=== PATIENT | female | born 1960 | race Caucasian/White ===

== ENCOUNTER 2018-06-07 17:22 | Emergency (ER) | payer OTHER, MEDICAID ==
[~2018-06-07] VITALS: Ht 162.6 cm; Wt 94.3 kg
[2018-06-07] MEDS ORDERED: LORATIDINE 10 M10 M1 PO (18:00)
[2018-06-07] MEDS ORDERED: NEURONTIN 300300 M1 PO (18:00)
[2018-06-07] MEDS ORDERED: LISINOPRIL20 MG PO (18:01)
[2018-06-07] MEDS ORDERED: SYNTHROID125 MC1 PO (18:01)
[2018-06-07] MEDS ORDERED: ZANAFLEX4 MG PO (18:01)
[2018-06-07] MEDS ORDERED: ULTRAM 50MG TAB50 MG PO (18:02)
[2018-06-07] MEDS ORDERED: NORCO 5-325 TA1 EACH PO (18:14)
[2018-06-07 18:22] VITALS: BP 149/88
== END 2018-06-07 18:23 | disposition home or self-care (01) ==
LOC: M.ERS 17:22
DX: M54.9 Dorsalgia, unspecified (principal); M79.641 Pain in right hand; M79.642 Pain in left hand; I10 Essential (primary) hypertension; K21.9 Gastro-esophageal reflux disease without esophagitis; F31.9 Bipolar disorder, unspecified; K31.84 Gastroparesis; F42.9 Obsessive-compulsive disorder, unspecified; Z88.8 Allergy status to other drugs, medicaments and biological substances; Z88.0 Allergy status to penicillin; Z98.890 Other specified postprocedural states; Z90.89 Acquired absence of other organs

== ENCOUNTER 2021-05-14 14:37 | Emergency (ER) | payer MEDICAID ==
[~2021-05-14] VITALS: Ht 162.6 cm; Wt 77.1 kg
--- NOTE | ~2021-05-14 | EMS ---
[address] [address] EMS Patient Care Report Name: DARLING GA Room: [facility]#: [id number] Admission: Attend Phys: Discharge: Date of : 58 Report #: [id number] THIS REPORT FOR: //name// Report Transmitted: 05/14/2021 14:32 EMS Care Summary [facility] Incident [phone] @ 05/14/2021 13:59 Incident Location [address] [place] [address] Patient DARLING GA Female, 61 Years 1960 Patient Address [address] [place] [address] Patient History Bipolar II Disorder,Schizophrenia,Neuropathy, Patient Allergies Penicillin allergy, Patient Medications Flexeril, Vitamin B12, Levothyroxine, Meclizine, Chief Complaint Hot/Cold interchanging temperatures Disposition Transported No Lights/[place] Dispatch Reason Sick Person Transported To [facility] Narrative S51 dispatched on a sick at a local residence. On EMS arrival, the pt was ambulating towards the ambulance from her residence. Pt stated that she wanted [address] [address] EMS Patient Care Report Name: DARLING GA Room: [facility]#: [id number] Admission: Attend Phys: Discharge: Date of : 58 Report #: [id number] to be "treated right" at a hospital and wanted her stool samples to "be tested". Pt stated that she was also "having thyroid issues", where she would get "hot" and "start sweating" then "get really cold". Pt stated that believed her building had a "fruit fly infestation" and that it was effecting her "insides". Pt stated that she had anxiety and was worried about her living situation and that people told her she was "paranoid". Pt stated that she wanted to transport to a local ED for further evaluation. Pt was able to ambulate into ambulance and was placed on cot in position of comfort. Pt was secured to cot using straps provided and in the ambulance. Vitals and assessments obtained. Pt was continually reassessed during transport. At receiving facility, pt care was transferred to nursing staff with verbal report given. RTS Glenroy Wyman, NRP Initial Vitals @14:13P: 85,R: 18,BP: 156/76,Pain: 0/10,GCS: 15,SpO2: 97,Revised Trauma: 12, @14:24P: 80,R: 18,BP: 158/92,GCS: 15,SpO2: 97,Revised Trauma: 12, Impression Behavioral/psychiatric episode Procedures @14:07 ALS Assessment Response: UnchangedSucceeded Timeline 13:58,Call Received 13:58,Psap Call 13:59,Dispatched 14:00,En Route 14:06,Initial Responder On Scene 14:06,On Scene 14:07,At Patient 14:07,ALS Assessment,Response: UnchangedSucceeded, 14:12,Depart Scene 14:13,BP: 156/76 M,PULSE: 85,RR: 18 R,SPO2: 97 Ox,ETCO2: ,BG: ,PAIN: 0,GCS: 15, 14:24,BP: 158/92 M,PULSE: 80,RR: 18 R,SPO2: 97 Ox,ETCO2: ,BG: ,PAIN: ,GCS: 15, 14:35,At Destination 14:51,Call Closed Disclaimer v1.1 Copyright 2021 [employer] This EMS Care Summary contains data elements from the applicable legal record (which may be displayed differently). It [place] [address] EMS Patient Care Report Name: DARLING GA Room: [facility]#: [id number] Admission: Attend Phys: Discharge: Date of : 58 Report #: [id number] information for the following purposes: continuity of care, clinical quality, and state data reporting. The complete legal record is available to ED staff and administrators of the receiving hospital in [employer] [address] Patient Tracker. All data is provided "as is."
[~2021-05-14 14:37] MED LIST: LISINOPRIL20 MG PO; LORATIDINE 10 M10 M1 PO; NEURONTIN 300300 M1 PO; NORCO 5-325 TA1 EACH PO; SYNTHROID125 MC1 PO; ULTRAM 50MG TAB50 MG PO; ZANAFLEX4 MG PO
[2021-05-14] MEDS ORDERED: MECLIZINE HCL12.5 MG PO (14:59)
[2021-05-14] MEDS ORDERED: ZYPREXA2.5 MG PO (14:59)
[2021-05-14] MEDS ORDERED: BACLOFEN5 MG PO (14:59)
[2021-05-14] MEDS ORDERED: LEVO-T25 MCG PO (14:59)
[2021-05-14] MEDS ORDERED: DEPAKOTE250 MG PO (15:00)
[2021-05-14 15:25] LABS: ABSOLUTE BASOPHILS 0.1 thou/uL (0.0-0.2); ABSOLUTE EOSINOPHILS 0.5 thou/uL (0.0-0.7); ABSOLUTE LYMPHOCYTES 2.1 thou/uL (0.8-5.3); ABSOLUTE MONOCYTES 0.9 thou/uL (0.0-1.2); BASOPHILS 0.8 %; EOSINOPHILS 5.5 %; HEMATOCRIT 42.5 % (37.0-47.0); MCH 29.4 pg (26.0-34.0); MCHC 32.8 g/dL (28.0-37.0); MCV 89.4 fL (80.0-100.0); MPV 8.2 fl. (7.2-11.1); NUCLEATED RBCS 0 /100WBC; PLATELET COUNT* 301 thou/uL (150-400); POLYS 58.7 %; RBC 4.76 mil/uL (4.20-5.00); RDW-CV 13.5 % (10.5-14.5); WBC 8.6 thou/uL (4.0-11.0)
[2021-05-14 15:26] LABS: URINE BILIRUBIN NEGATIVE (Negative); URINE BLOOD TRACE (Negative); URINE CLARITY CLEAR; URINE COLOR YELLOW; URINE GLUCOSE-RANDOM NEGATIVE (Negative); URINE KETONES NEGATIVE (Negative); URINE LEUKOCYTES-REFLEX TRACE (Negative); URINE NITRITE-REFLEX NEGATIVE (Negative); URINE PROTEIN NEGATIVE (Negative); URINE UROBILINOGEN 0.2 E.U./dl (0.2-1.0)
[2021-05-14 15:31] LABS: BACTERIA-REFLEX None Seen /HPF (None Seen); CASTS None Seen /LPF (None Seen); CRYSTALS None Seen /LPF (None Seen); SQUAMOUS 0-3 Few /LPF (0-3); URINE RBC 0-2 Rare /HPF (0-2); URINE WBC-REFLEX 0-5 Rare /HPF (0-5)
[2021-05-14 15:31] LABS: CALCIUM 9.6 mg/dL (8.5-10.1); CREATININE 0.9 mg/dL (0.6-1.3); POTASSIUM 4.3 mmol/L (3.5-5.1)
[2021-05-14 15:37] LABS: ALBUMIN 3.9 g/dL (3.4-5.0); TOTAL BILIRUBIN 0.2 mg/dL (<0.1-1.0); TOTAL PROTEIN 7.7 g/dL (6.4-8.2)
[2021-05-14 16:28] VITALS: BP 146/80
== END 2021-05-14 16:29 | disposition home or self-care (01) ==
LOC: M.ERS 14:37
PROVIDERS: Family Medicine; Physician Assistant
DX: R94.6 Abnormal results of thyroid function studies (principal); R74.01 Elevation of levels of liver transaminase levels; I10 Essential (primary) hypertension; K21.9 Gastro-esophageal reflux disease without esophagitis; F31.9 Bipolar disorder, unspecified; M79.7 Fibromyalgia; M19.90 Unspecified osteoarthritis, unspecified site; G62.9 Polyneuropathy, unspecified; Z98.890 Other specified postprocedural states; Z90.89 Acquired absence of other organs; Z79.899 Other long term (current) drug therapy; Z88.8 Allergy status to other drugs, medicaments and biological substances; Z88.0 Allergy status to penicillin